=== PATIENT | female | born 1985 | race Caucasian/White ===

== ENCOUNTER 2019-10-29 17:11 | Emergency (ER) | payer BC, OTHER ==
[2019-10-29 17:17] VITALS: BP 145/102
--- NOTE | 2019-10-29 17:54 | ER Document Report ---
ED Skin Rash/Insect Bite/Abscs - General Chief Complaint: Abscess Stated Complaint: ABSCESS/GROIN AREA Time Seen by Provider: 10/29/19 17:49 Mode of Arrival: Ambulatory Information source: Patient - Related Data Allergies/Adverse Reactions: iodine Allergy (Verified 10/29/19 17:44) Physical Exam - Vital signs Vitals: Temp Pulse Resp BP Pulse Ox 98.7 F 109 H 16 145/102 H 98 10/29/19 17:15 10/29/19 17:15 10/29/19 17:15 10/29/19 17:15 10/29/19 17:15 Course - Vital Signs Vital signs: Temp Pulse Resp BP Pulse Ox 98.7 F 109 H 16 145/102 H 98 10/29/19 17:15 10/29/19 17:15 10/29/19 17:15 10/29/19 17:15 10/29/19 17:15
--- NOTE | 2019-10-29 17:55 | ER Document Report ---
ED Medical Screen (RME) - General Chief Complaint: Abscess Stated Complaint: ABSCESS/GROIN AREA Time Seen by Provider: 10/29/19 17:49 Mode of Arrival: Ambulatory Notes: 34-year-old female presented to ED for complaint of right Bartholin cyst that is about the size of a golf ball. She states she has had one in the past that was lanced. She states she is also had a salpingectomy ear tubes and she is bipolar 2. She does not smoke occasionally drinks and does not use any illicit drugs. She is alert oriented respirations regular and unlabored speaking in full sentences. She is able to walk with a even steady gait at this time. She will need this lanced. I have greeted and performed a rapid initial assessment of this patient. A comprehensive ED assessment and evaluation of the patient, analysis of test r esults and completion of medical decision making process will be conducted by an additional ED providers. - Related Data Allergies/Adverse Reactions: iodine Allergy (Verified 10/29/19 17:44) Past Medical History - Social History Chew tobacco use (# tins/day): No Frequency of alcohol use: Occasional Drug Abuse: None Past Surgical History: Reports: Hx Gynecologic Surgery Physical Exam - Vital signs Vitals: Temp Pulse Resp BP Pulse Ox 98.7 F 109 H 16 145/102 H 98 10/29/19 17:15 10/29/19 17:15 10/29/19 17:15 10/29/19 17:15 10/29/19 17:15 Course - Vital Signs Vital signs: Temp Pulse Resp BP Pulse Ox 98.7 F 109 H 16 145/102 H 98 10/29/19 17:15 10/29/19 17:15 10/29/19 17:15 10/29/19 17:15 10/29/19 17:15
[2019-10-29] MEDS ORDERED: LIDOCAINE 1% INJ-PF (10 MG/ML) 30 ML SDV INJ ONE (18:41)
--- NOTE | 2019-10-29 19:23 | ER Document Report ---
ED Skin Rash/Insect Bite/Abscs - General Chief Complaint: Abscess Stated Complaint: ABSCESS/GROIN AREA Time Seen by Provider: 10/29/19 17:49 Mode of Arrival: Ambulatory Notes: Patient is a 34-year-old female who presents emergency department for a chief complaint of a cyst to her right labia majora. Patient states that she has history of Bartholin gland cyst in the past. Patient had a slight fever a few days ago, but she has been taking Tylenol to help with pain. Denies any body aches or chills. Patient is currently on Suboxone and phentermine. - Related Data Allergies/Adverse Reactions: iodine Allergy (Verified 10/29/19 17:44) Past Medical History - General Information source: Patient - Social History Smoking Status: Never Smoker Chew tobacco use (# tins/day): No Frequency of alcohol use: Occasional Drug Abuse: None Family History: Reviewed & Not Pertinent Patient has homicidal ideation: No Past Surgical History: Reports: Hx Gynecologic Surgery Review of Systems - Review of Systems Notes: REVIEW OF SYSTEMS: CONSTITUTIONAL : Denies recent illness. Denies recent unintentional weight loss. Denies fever, chills, or sweats. EENT: Denies eye, ear, throat, or mouth pain, discharge, or symptoms. Denies nasal or sinus congestion. CARDIOVASCULAR: Denies chest pain. RESPIRATORY: Denies shortness of breath, cough, congestion, difficulty breathing, or wheezing. GASTROINTESTINAL: Denies nausea, vomiting, and diarrhea. Denies abdominal pain. Denies constipation. GENITOURINARY: Denies difficulty urinating, burning, blood in urine, urgency or frequency. MUSCULOSKELETAL: Denies neck and back pain. Denies joint pain or swelling. SKIN: Denies rash, itchiness, or lesions HEMATOLOGIC : Denies easy bruising or bleeding. LYMPHATIC: Denies swollen, painful, enlarged glands. NEUROLOGICAL: Denies no numbness or tingling denies weakness. Denies headache. Denies altered mental status. Denies alteration in speech. PSYCHIATRIC: Denies stress, anxiety, alteration in sleep patterns, or depression. REGISTERED HEALTH NURSE: See HPI. All other systems reviewed and negative. Physical Exam - Vital signs Vitals: Temp Pulse Resp BP Pulse Ox 98.7 F 109 H 16 145/102 H 98 10/29/19 17:15 10/29/19 17:15 10/29/19 17:15 10/29/19 17:15 10/29/19 17:15 - Notes Notes: PHYSICAL EXAMINATION: GENERAL: Appears well, healthy, well-nourished, no acute distress. HEAD: Normocephalic, atraumatic. EYES: PERRL, conjunctiva normal, all extraocular movements intact, sclera nonicteric ENT: Moist mucous membranes. NECK: Supple, no noticeable swelling, redness, rash. Normal range of motion. LUNGS: Equal breath sounds bilaterally and clear to auscultation. No wheezes rales or rhonchi. CARDIOVASCULAR: S1-S2, regular rate, regular rhythm. Radial pulses 2+, normal. ABDOMEN: Normoactive bowel sounds. Soft, nontender, no guarding, no rebound tenderness, and no masses palpated. EXTREMITIES: Normal strength and range of motion, no pitting or edema. No cyanosis. NEUROLOGICAL: Moves all extremities upon command. Strength 5/5 in all extremities. PSYCH: Normal mood, normal affect. SKIN: Warm, dry. REGISTERED HEALTH NURSE: Abscess noted to right labia majora. Course - Re-evaluation Re-evalutation: 10/29/19 19:45 Differential diagnosis includes but normal limited to: abscess, dermoid cyst, sebaceous cyst, furnucle, or others. Based on patient's physical exam and history, this is an abscess. It was drained in the ER. There is no surrounding cellulitis. I do not believe the patient has underlying necrotizing fasciitis. Based on patient's physical exam and these factors, they will be treated with antibiotics. Wound culture was sent. Follow-up precautions were given. Verbal discharge instructions were given to the patient. They verbalized understanding. They are stable for discharge. - Vital Signs Vital signs: Temp Pulse Resp BP Pulse Ox 98.7 F 109 H 16 145/102 H 98 10/29/19 17:15 10/29/19 17:15 10/29/19 17:15 10/29/19 17:15 10/29/19 17:15 Procedures - Incision and Drainage Right Labia Type: Simple Anesthetic type: 1% Lidocaine mL's of anesthetic: 6 Blade size: 11 I&D procedure: Shurclens applied Incision Method: Incision made by scalpel Amount/type of drainage: 10 MLS/blood and purulent Female anatomy: 1 - Abscess Discharge - Discharge Clinical Impression: Abscess Condition: Stable Disposition: HOME, SELF-CARE Instructions: Abscess ([facility]), Post Incision and Drainage, Trimethoprim-Sulfa ([facility]) Additional Instructions: You were seen for an abscess that required drainage. Please clean this area with soap and water twice daily. Dress the area after each cleaning. Please return if you develop fever, vomiting, the pain at the site worsens, you notice spreading redness from the area, or you have any other symptoms that are concerning to you. Take your antibiotics as prescribed. Prescriptions: Sulfamethoxazole/Trimethoprim [Bactrim Ds Tablet] 1 each PO BID 7 Days #14 tablet Forms: Return to Work
== END 2019-10-29 20:06 | disposition home or self-care (01) ==
LOC: ER 17:11
DX: N76.4 Abscess of vulva (principal); Z79.899 Other long term (current) drug therapy
CPT/HCPCS: 99283; 56405; J3490